=== PATIENT | female | born 1965 | race Caucasian/White ===

== ENCOUNTER → 2019-03-22 | Outpatient (CLI) | payer BC ==
--- NOTE | 2019-03-25 10:16 | RAD ---
DATE: 03/22/2019 EXAM: MAMMO [facility] SCREENING BILATERAL HISTORY: Routine screening COMPARISON: 09/14/2016, 03/30/2015, 03/19/2014 mammographic exams This study was interpreted with the benefit of Computerized Aided Detection (CAD). Breast Density: SCATTERED The breast parenchyma shows scattered fibroglandular densities. Breast parenchyma level B. FINDINGS: Benign-appearing lymph nodes are present. No masses, distortion, or suspicious calcifications. IMPRESSION: Unremarkable. BI-RADS CATEGORY: 1 NEGATIVE RECOMMENDED FOLLOW-UP: 12M 12 MONTH FOLLOW-UP PQRS compliance statement: Patient information was entered into a reminder system with a target due date in one year for the next mammogram. Mammography is a sensitive method for finding small breast cancers, but it does not detect them all and is not a substitute for careful clinical examination. A negative mammogram does not negate a clinically suspicious finding and should not result in delay in biopsying a clinically suspicious abnormality. "Our facility is accredited by the [employer] Mammography [employer]."
== END | disposition home or self-care (01) ==
LOC: MAMMO 10:16
PROVIDERS: ATTEND Nurse Practitioner Women's Health
DX: Z12.31 Encounter for screening mammogram for malignant neoplasm of breast (principal)
CPT/HCPCS: 77063; 77067

== ENCOUNTER → 2020-03-11 | Outpatient (CLI) | payer BC ==
[~2020-03-11] MED LIST: REGADENOSON 0.4 MG/5 ML DISP.SYRIN. IV ONE
--- NOTE | 2020-03-11 11:30 | RAD ---
MR#: [id number] Date of Study: 03/11/2020 Ordering Physician: ART PHILLIPS, Referring Physician: LUAN DOCKERY Tech: RT Ewa (R) (N) APPROVED REPORT Test Type: Pharmacological Stress Nurse/Tech: RT Ewa (R) (N)/ Hazel Test Indications: CP Cardiac History: No known cardiac Medications: See EHR Medical History: See EHR Resting Heart Rate: 57 bpm Resting Blood Pressure: 120/56mmHg Pharm. Details Pharmacologic stress testing was performed using 0.4mg per 5ml of regadenoson given intravenously ove r 7-10 seconds. Stress Symptoms Dyspnea POST EXERCISE Reason for Termination: Infusion complete Max HR: 107 bpm Max Blood Pressure: 124/54mmHg Blood Pressure response to exercise: Normal blood pressure response during stress. Heart Rate response to exercise: Increased Chest Pain: No. Arrhythmia: No. ST Change: No. INTERPRETATION Stress EKG Conclusion: Baseline EKG showed sinus rhythm. No ischemic changes at peak stress. No arr hythmias. Imaging Protocol IMAGE PROTOCOL: Rest Tc-99m/stress Tc-99m 1 day Rest: Stress: Viability: Radiopharm.Tc99m TcdizedeuQh98s Sestamibi Yumq36rPv 33mCi Duration 15min. 15min. Img Date 03/11/2020 03/11/2020 Rest Admin Site:IV - Right AntecubitalAdministrator: RT Ewa (R)(N) Stress Admin Site: IV - Right AntecubitalAdministrator: RT Ewa (R)(N) STRESS DATA End Diast. Vol.83.0mlAv. Heart Rate54.0bpm End Syst. Vol.12.0mlCO Index BSA3.9L/min Myocardial Dhjc604.0gEject. Tlvjwfsi93.0% Stress Rates Pk. Fill Rate2.93EDV/secLVtime Pk. Fill 159.23msec Pk. Empty Rate2.72ESV/secLVtime Pk. Tcbxo594.94msec 09/20 Pk. Fill1.86EDV/sec Stress Scores Regional WT0.00Summed WT0.00 Regional WM0.00Summed WM0.00 LV Perfusion Scintigraphic images did not show any fixed or reversible defects but there was mild transient ischem ic dilatation of 1.28. Wall Motion Normal left ventricular systolic function with ejection fraction calculated at 80%. LV Perf. Quant 17 Seg. SSS1.00 17 Seg. SRS1.00 17 Seg. SDS0.00 Stress Defect Extent (% LAD)6.30Rest Defect Extent (% LAD)1.30Rev. Defect Extent (% LAD)5.00 Stress Defect Extent (% LCX) 0.00Rest Defect Extent (% LCX)0.00Rev. Defect Extent (% LCX)0.00 Stress Defect Extent (% RCA)0.00Rest Defect Extent (% RCA)0.00Rev. Defect Extent (% RCA)0.00 Stress Defect Extent (% LAUREEN)3.90Rest Defect Extent (% LAUREEN)2.20Rev. Defect Extent (% LAUREEN)1.70 Conclusion 1. Regadenoson cardioisotope stress test did not show any ischemia or infarct but showed mild transie nt ischemic dilatation of 1.28. 2. Normal left ventricular systolic function with ejection fraction calculated at 80%. Signed by : Charles Babin, Electronically Approved : 03/11/2020 11:30:00
== END | disposition home or self-care (01) ==
LOC: NM 07:34
PROVIDERS: ATTEND Internal Medicine
DX: I25.9 Chronic ischemic heart disease, unspecified (principal); R07.9 Chest pain, unspecified
CPT/HCPCS: 78452; 93017; A9500; J2785

== ENCOUNTER → 2020-04-06 | Outpatient (CLI) | payer BC ==
--- NOTE | 2020-04-06 15:25 | RAD ---
EXAM: BILATERAL DIGITAL 3D SCREENING MAMMOGRAPHY. HISTORY: Routine mammographic screening. TECHNIQUE: Bilateral digital 3D and tomographic images were obtained in CC and MLO projections. Computer-aided detection was applied. COMPARISON: 03/22/2019, 09/14/2016. COMPOSITION: B. There are scattered areas of fibroglandular density. FINDINGS: There is a new nodule in the slightly lateral right subareolar position. See annotations. There is no suspicious finding on the left. BI-RADS CATEGORY 0: Incomplete--Needs Additional Imaging Evaluation. RECOMMENDATION: 1. Spot compression of a new nodule in the right subareolar position. Sonography if necessary. Electronically signed by: Sienna Esqueda MD (04/06/2020 3:23 PM) [id number]
== END ==
LOC: MAMMO 09:06
PROVIDERS: ATTEND Nurse Practitioner Women's Health
DX: Z12.31 Encounter for screening mammogram for malignant neoplasm of breast (principal); N63.41 Unspecified lump in right breast, subareolar
CPT/HCPCS: 77067

== ENCOUNTER → 2020-04-22 | Outpatient (CLI) | payer BC ==
--- NOTE | 2020-04-22 13:39 | RAD ---
DATE: 04/22/2020 10:16 AM EXAM: DIGITAL DIAGNOSTIC RT, BREAST RIGHT HISTORY: Screening recall for new subareolar right breast mass COMPARISON: 04/06/2020, 03/22/2019 TECHNIQUE: Spot compression right CC view and a full-field right ML view were obtained and reviewed with computer-aided detection. Targeted ultrasound of the subareolar right breast was subsequently performed. FINDINGS: Breast Density: SCATTERED The breast parenchyma shows scattered fibroglandular densities. Breast parenchyma level B The questioned asymmetry persisted as an oval circumscribed isodense mass in the subareolar right breast. It was pursued for additional imaging by ultrasound. This revealed a circumscribed oval parallel orientation 4 mm hypoechoic mass with low level internal echoes and posterior acoustic enhancement at the retroareolar 8:00 right breast. IMPRESSION: Probably benign complicated cyst in the subareolar right breast. BI-RADS CATEGORY: 3 PROBABLY BENIGN FINDING(S)-SHORT INTERVAL FOLLOW-UP SUGGESTED RECOMMENDED FOLLOW-UP: 6M 6 MONTH FOLLOW-UP six-month follow-up right breast ultrasound recommended PQRS compliance statement: Patient information was entered into a reminder system with a target due date for the next mammogram. Mammography is a sensitive method for finding small breast cancers, but it does not detect them all and is not a substitute for careful clinical examination. A negative mammogram does not negate a clinically suspicious finding and should not result in delay in biopsying a clinically suspicious abnormality. "Our facility is accredited by the [employer] Mammography [employer]."
== END | disposition home or self-care (01) ==
LOC: MAMMO 10:04
PROVIDERS: ATTEND Nurse Practitioner Women's Health
DX: R92.8 Other abnormal and inconclusive findings on diagnostic imaging of breast (principal); N63.13 Unspecified lump in the right breast, lower outer quadrant
CPT/HCPCS: 76641; 77065

== ENCOUNTER → 2020-11-02 | Outpatient (CLI) | payer BC ==
--- NOTE | 2020-11-02 17:05 | RAD ---
Examination: Limited right breast ultrasound. INDICATION: 55-year-old woman presents for short-term follow-up probably benign complicated cyst in t he subareolar right breast. This is initially identified on screening of 04/06/2020 recall for additio nal imaging. COMPARISON: Right diagnostic mammogram of 04/22/2020, right breast ultrasound of 04/22/2020. TECHNIQUE: Grayscale and color Doppler imaging of the periareolar right breast focused in the lower o uter quadrant was performed along with sonographic survey of the right axilla. FINDINGS: Circumscribed oval 4 mm mass in the retroareolar right o'clock position 1 cm from the nipple persists unchanged with an echogenic halo. Low level internal echoes are present on this examination and suzan ins appear slightly irregular on this examination. IMPRESSION: Mildly suspicious persistent 4 mm nodule in the periareolar right breast. BI-RADS Category 4 Findings suspicious for malignancy. Recommend attempt at cyst aspiration with possible biopsy if aspiration fails to resolve the mass. Findings and recommendations telephoned to the referring provider's office where Dr. Fragoso took the telephone report on behalf of the patient's referring provider Dr. Caroline Salazar at approximately 3:0 0 PM on 11/02/2020. Patient was also notified by the technologist on my behalf and at my request prior to her discharge from the imaging suite. Electronically signed by: Bryan Rodriguez MD (11/02/2020 5:03 PM) [id number]
== END ==
LOC: US 12:54
PROVIDERS: ATTEND Nurse Practitioner Women's Health
DX: N63.41 Unspecified lump in right breast, subareolar (principal)
CPT/HCPCS: 76641

== ENCOUNTER → 2021-09-13 | Outpatient (CLI) | payer BC ==
--- NOTE | 2021-09-13 16:07 | RAD ---
EXAM: 1. BILATERAL DIGITAL DIAGNOSTIC MAMMOGRAPHY. 2. RIGHT BREAST ULTRASOUND. HISTORY: Six-month follow-up of right breast biopsy revealing benign changes of stromal fibrosis. Yea rly screening. TECHNIQUE: Bilateral full field digital images were obtained in CC and MLO projections. Computer-aide d detection was applied. Sonography of the right upper outer breast was also performed. COMPARISON: 11/13/2020, 04/22/2020, 04/06/2020. COMPOSITION: B. There are scattered areas of fibroglandular density. FINDINGS: A postbiopsy clip is again noted within the small nodule just lateral to the right areola. On today's sonography, there is no clear interval change in associated hypoechoic mass measuring 6 x 3 x 3 mm. Images of the right axilla revealed normal-appearing lymph nodes. There is no suspicious so nographic finding. There are no suspicious masses, microcalcifications or architectural distortion. The parenchymal catrachita bartolo is stable. BI-RADS CATEGORY 2: Benign. RECOMMENDATION: 1. Routine screening mammography in one year. If mammography demonstrates dense breast tissue (heterogenously dense or extremely dense, category C or D), which could hide abnormalities, and if other risk factors for breast cancer have been identifi ed, supplemental screening tests that may be suggested by the ordering physician may be of benefit. D ense breast tissue, in and of itself, is a relatively common condition. Therefore, this information i s not provided to cause undue concern, but rather to raise awareness and to promote discussion with t he referring physician regarding the presence of other risk factors, in addition to dense breast tiss ue. The results of this mammography examination is provided to the patient and referring physician. T he patient should contact their referring physician if any questions or concerns exist regarding this report. PQRS compliance statement - Patient information was entered into a reminder system with a target due date for the next mammogram. "Our facility is accredited by the [employer] Mammography [employer]." Electronically signed by: Sienna Esqueda MD (09/13/2021 4:04 PM) [email or web address]
== END ==
LOC: MAMMO 13:17
PROVIDERS: ATTEND Nurse Practitioner Women's Health
DX: Z09 Encounter for follow-up examination after completed treatment for conditions other than malignant neoplasm (principal); R93.89 Abnormal findings on diagnostic imaging of other specified body structures; N63.41 Unspecified lump in right breast, subareolar
CPT/HCPCS: 76642; 77066; G0279; 77062